=== PATIENT | male | born 1950 | race Caucasian/White ===

== ENCOUNTER 2023-01-07 20:01 | Inpatient (IN) | payer MEDICARE, OTHER ==
[2023-01-07] VITALS (63 sets, daily range): BP systolic 170–189; BP diastolic 82–86; O2SAT 92–98
[~2023-01-07] VITALS: Ht 182.9 cm; Wt 107.8 kg
[2023-01-07 20:39] LABS: BASO # 0.1 K/mm3 (0.0-0.2); BASO % 0.5 % (0.0-2.0); EOS # 0.2 K/mm3 (0.0-0.7); EOS % 2.6 % (0.0-4.0); GRAN # 4.9 K/mm3 (1.4-6.5); GRAN % 53.3 % (42.2-75.2); HEMOGLOBIN 14.5 g/dl (13.5-18.0); LYMPH # 3.2 K/mm3 (1.2-3.4); LYMPH % 34.4 % (20.0-51.0); MEAN CELL VOLUME 84 fl (80.0-100.0); MEAN CORPUSCULAR HEMOGLOBIN 28 pg (27-31); MEAN CORPUSCULAR HGB CONC 33 g/dl (33.0-37.0); MEAN PLATELET VOLUME 9.2 fl (7.4-10.4); MONO # 0.8 K/mm3 (0.1-0.6); PLATELET COUNT 271 K/mm3 (130-400); RED BLOOD COUNT 5.25 M/mm3 (4.20-5.60); REDCELL DISTRIBUTION WIDTH-CV 14.3 % (11.5-14.5)
[2023-01-07 20:40] LABS: INR 1.1 (0.8-3.0); PROTHROMBIN TIME 12.3 SECONDS (9.7-12.8)
[2023-01-07 20:42] LABS: PARTIAL THROMBOPLASTIN TIME 30.3 SECONDS (26.0-37.0)
[2023-01-07 20:48] LABS: ALBUMIN 3.9 gm/dL (3.4-4.8); BILIRUBIN,TOTAL 0.5 mg/dL (0.2-1.2); CREATININE, serum 0.88 mg/dL (0.72-1.25)
[2023-01-07 20:57] LABS: TROPONIN-I 0.937 ng/mL (0.00-0.033)
[2023-01-07] MEDS ORDERED: ASPIRIN 32325 MG/TAB PO (21:13)
[2023-01-07] MEDS ORDERED: TOPROL XL100 MG PO (21:13)
[2023-01-07 21:53] LABS: C-REACTIVE PROTEIN 0.8 mg/dL (0.00-0.50); MAGNESIUM 1.8 mg/dL (1.6-2.6)
[2023-01-07 22:13] LABS: THYROID STIMULATING HORMONE 1.675 uIU/mL (0.350-4.940)
--- NOTE | 2023-01-07 23:00 | NUR ---
PT ARRIVED FROM ER VIA STRETCHER AROUND 2244. AMBULATED TO ICU BED, CONNECTED TO MONITORING. HEPARIN AND NITRO DRIPS INITIATED PER ORDER. WILL TITRATE NITRO DRIP FOR BP, JAVIER CANTU APRN STATES GOAL OF MAP 100-110. PT DENIES CHEST PAIN OR SOA AT THIS TIME. DOES STATE HAS TO SLEEP WITH HOB ELEVATED, SHOWED PT BED CONTROLS AND PROVIDED WITH ADDITIONAL PILLOWS. RESP ARE EVEN AND UNLABORED, PT MAINTAINING PULSE OXIMETRY AROUND 94% ON RA AT THIS TIME. DOES REPORT SMOKING 2 PACKS PER DAY OF CIGARRETES, NICOTINE PATCH TO BE ORDERED BY PRACTITIONER PER PT REQUEST. PT HAS CALL LIGHT IN HAND, ORIENTED TO ROOM/MONITORING/PLAN OF CARE. NO QUESTIONS OR CONCERNS AT THIS TIME. WILL CONTINUE TO MONITOR.
[2023-01-07 23:07] LABS: COLLECTION METHOD CLEAN CATCH
[2023-01-07 23:11] LABS: SQUAMOUS EPITHELIAL None Seen /hpf (0-10); URINE APPEARANCE Clear (CLEAR/HAZY); URINE BACTERIA None Seen /hpf (NONE SEEN); URINE BLOOD TRACE-INTACT (NEGATIVE); URINE COLOR Yellow (YELLOW); URINE GLUCOSE Negative (NEGATIVE); URINE KETONE Negative (NEGATIVE); URINE NITRATE Negative (NEGATIVE); URINE PROTEIN(semi-quant) Negative (NEGATIVE); URINE RBC 0-2 /hpf (0-2); URINE UROBILINOGEN 0.2 E.U/dL (0.2-1.0)
[2023-01-08] VITALS (655 sets, daily range): BP systolic 127–179; BP diastolic 59–88; PULSE 59–66; TEMP 97.8–98.5; O2SAT 87–97
[2023-01-08 05:14] LABS: BASO # 0.1 K/mm3 (0.0-0.2); BASO % 0.6 % (0.0-2.0); EOS # 0.2 K/mm3 (0.0-0.7); EOS % 2.5 % (0.0-4.0); GRAN # 4.7 K/mm3 (1.4-6.5); GRAN % 54.4 % (42.2-75.2); HEMATOCRIT 39.4 % (42.0-52.0); HEMOGLOBIN 12.9 g/dl (13.5-18.0); LYMPH # 2.9 K/mm3 (1.2-3.4); LYMPH % 33.9 % (20.0-51.0); MEAN CELL VOLUME 84 fl (80.0-100.0); MEAN CORPUSCULAR HEMOGLOBIN 27 pg (27-31); MEAN CORPUSCULAR HGB CONC 33 g/dl (33.0-37.0); MEAN PLATELET VOLUME 9.1 fl (7.4-10.4); MONO # 0.7 K/mm3 (0.1-0.6); MONO % 8.5 % (1.7-9.3); PLATELET COUNT 197 K/mm3 (130-400); REDCELL DISTRIBUTION WIDTH-CV 14.3 % (11.5-14.5)
[2023-01-08 05:28] LABS: CALCIUM 9.1 mg/dL (8.4-10.2); CREATININE, serum 0.87 mg/dL (0.72-1.25); POTASSIUM 3.6 mmol/L (3.5-4.5)
--- NOTE | 2023-01-08 06:28 | NUR ---
NITROGLYCERINE DRIP HAS BEEN ON STANDBY SINCE 0230 THIS AM. PT'S BP REMAINS STABLE WITH SBP 130-150 WITHOUT DRIP INFUSING. PT EXPRESSES WISHES TO TRANSFER TO MEDICAL FLOOR, WITHOUT "ALL THE WIRES" AND TO HAVE A WINDOW. ENCOURAGED PT THAT WITH BP STABLE, MAY BE ABLE TO TRANSFER LATER TODAY.
--- NOTE | 2023-01-08 08:29 | NUR ---
PT IS AWAKE/ALERT IN CHAIR EATING BREAKFAST. PT DENIES ANY CONCERNS AT THIS TIME. CALL LIGHT IN HAND WATCHING TV.
--- NOTE | 2023-01-08 09:37 | NUR ---
Received consult to educate pt on salt and fluid restrictions. Will educate pt when out of ICU.
[2023-01-08 11:29] LABS: CHOLESTEROL RISK RATIO 4.8
--- NOTE | 2023-01-08 11:38 | NUR ---
Sewing Inspector rounds: Patient was seated in his recliner. Patient was wearing blue jeans with his hospital gown. Patient had come into the hospital via the ER because his Daughter who is a Pharmacist was concerned about his heart functions. Patient told Sewing Inspector his BP was "200 and something." Patient agreed that this is too high. He feels good this morning. Watching the dog show. Hoping to go upstairs. He wants a room with a window and a real bathroom. Sewing Inspector prayed for Patient.
--- NOTE | 2023-01-08 11:54 | NUR ---
SW met with pt to complete intake. Pt reports he lives at home alone and he is a . His nk is his daughter, Mariajose @ [phone]. Pt reports independent with ADLs and does not use any DMEs. PCP is Janessa Loza and gets medications from [facility]. PT reports no DPOA-HC and not interested at this moment. No other needs at this time. SW to await further recommendations and follow up as needed.
--- NOTE | 2023-01-08 14:39 | NUR ---
PT HAND OFF REPORT GIVEN TO TAYLOR REA ON MEDICAL. PT TO BE MOVED 310.
--- NOTE | 2023-01-08 15:22 | NUR ---
PT ADMITTED TO MEDICAL UNIT. ORIENTED PT TO ROOM. MED REC REVIEWED. PT DENIES ANY NEEDS AT THIS TIME. SHIFT ASSESSMENT COMPLETED. CALL LIGHT WITHIN REACH. WILL CONTINUE TO MONITOR.
[2023-01-09 00:09] VITALS: BP 157/72; PULSE 58
[2023-01-09 03:41] VITALS: BP 160/69; PULSE 58; TEMP 97.7
--- NOTE | 2023-01-09 05:11 | NUR ---
Pt assessment completed at 2000. A&Ox4. Pt denies chest pain, dizziness, Nausea, SOB, etc. All medication given per emar. Pt NPO since midnight for possible procedure. RAC INT is CDI. Belongings and call light are within reach.
[2023-01-09 06:56] LABS: BASO % 0.7 % (0.0-2.0); EOS # 0.1 K/mm3 (0.0-0.7); EOS % 2.1 % (0.0-4.0); GRAN # 3.5 K/mm3 (1.4-6.5); GRAN % 59.9 % (42.2-75.2); HEMATOCRIT 41.4 % (42.0-52.0); HEMOGLOBIN 13.7 g/dl (13.5-18.0); LYMPH # 1.5 K/mm3 (1.2-3.4); LYMPH % 26.1 % (20.0-51.0); MEAN CELL VOLUME 83 fl (80.0-100.0); MEAN CORPUSCULAR HEMOGLOBIN 28 pg (27-31); MEAN CORPUSCULAR HGB CONC 33 g/dl (33.0-37.0); MEAN PLATELET VOLUME 9.3 fl (7.4-10.4); MONO # 0.6 K/mm3 (0.1-0.6); MONO % 10.9 % (1.7-9.3); PLATELET COUNT 209 K/mm3 (130-400); RED BLOOD COUNT 4.99 M/mm3 (4.20-5.60); REDCELL DISTRIBUTION WIDTH-CV 14.4 % (11.5-14.5)
[2023-01-09 07:06] LABS: CALCIUM 9.1 mg/dL (8.4-10.2); CREATININE, serum 0.85 mg/dL (0.72-1.25); POTASSIUM 3.7 mmol/L (3.5-4.5)
[2023-01-09 07:44] VITALS: BP 158/52; PULSE 58; TEMP 97.9
--- NOTE | 2023-01-09 07:47 | NUR ---
Pt awake and sitting in recliner. Morning medications administered by nursing home administrator, Nicolle. Shift assessment completed. Telemetry remains on with NSR. INT in R AC patent, no edema or redness. No request at this time. Pt waiting for echo today. Call light within reach.
--- NOTE | 2023-01-09 09:30 | NUR ---
Initial visit; Patient thanked Deep Submergence Vehicle Crewmember for stopping by and offering Spiritual Care. Deep Submergence Vehicle Crewmember wished patient God's Blessings.
[2023-01-09] MEDS ORDERED: GLUCOPHAGE500 MG/TAB PO (09:54)
[2023-01-09] MEDS ORDERED: FREESTYLE PREC1 EAC5 MC (09:55)
[2023-01-09] MEDS ORDERED: GLUCOSE TEST ST1 DEV MC (09:58)
[2023-01-09] MEDS ORDERED: BD ALCOHOL1 SWA MC (09:58)
[2023-01-09] MEDS ORDERED: LANCETS MC (09:58)
--- NOTE | 2023-01-09 12:38 | NUR ---
Pt eager to go home. States he does not understand the wait time. This nurse explained the current POC. Pt expressed he will "wait a little longer" but he is "at the end of his rope." EMILY Mendoza notified.
[2023-01-09] MEDS ORDERED: PLAVIX 75MG TAB75 MG PO (12:57)
[2023-01-09] MEDS ORDERED: TOPROL XL 50MG50 MG PO (12:57)
[2023-01-09] MEDS ORDERED: ASPIRIN E.C. 8181 MG PO (12:57)
[2023-01-09] MEDS ORDERED: COZAAR 50MG50 MG/TAB PO (12:57)
[2023-01-09] MEDS ORDERED: LASIX 20MG TABL20 MG PO (12:58)
--- NOTE | 2023-01-09 13:22 | NUR ---
Entered patient's room and asked to check vital signs. Patient declined. I reported to nurse (LARY Crockett).
--- NOTE | 2023-01-09 13:27 | NUR ---
MING charting reviewed, agree with documentation. TAYLOR Doss Clincal Instructor
--- NOTE | 2023-01-09 13:30 | NUR ---
Discharge instructions given. All questions answered. INT in R AC discontinued with catheter tip intact. Pt escorted out of facility by CHERYL Bragg.
== END 2023-01-09 13:30 | disposition home or self-care (01) | DRG 280 ==
LOC: COL.ER 20:01 → ICU 21:20 → MEDICAL 21:20
PROVIDERS: Emergency Medicine; Nurse Practitioner; Nurse Practitioner Family; ADMIT Hospitalist
DX: I16.1 Hypertensive emergency (principal); J81.0 Acute pulmonary edema; I21.4 Non-ST elevation (NSTEMI) myocardial infarction; E78.5 Hyperlipidemia, unspecified; J44.9 Chronic obstructive pulmonary disease, unspecified; I10 Essential (primary) hypertension; I25.10 Atherosclerotic heart disease of native coronary artery without angina pectoris; E11.9 Type 2 diabetes mellitus without complications; F40.240 Claustrophobia; F17.210 Nicotine dependence, cigarettes, uncomplicated; Z79.82 Long term (current) use of aspirin; Z23 Encounter for immunization; Z95.5 Presence of coronary angioplasty implant and graft; Z88.8 Allergy status to other drugs, medicaments and biological substances
CPT/HCPCS: J1644; J1940